=== PATIENT | female | born 1955 ===

== ENCOUNTER 2016-09-03 19:07 | Emergency (ER) | payer SELFPAY ==
[2016-09-03 20:33] VITALS: BP 156/74; PULSE 58; RESP 18; TEMP 97.8; O2SAT 100
[2016-09-03] MEDS ORDERED: Naproxen 500 MG TAB PO STA (21:14)
--- NOTE | 2016-09-03 21:30 | ED PDOC ---
HPI: General Adult Time Seen by Provider: 09/03/16 21:09 Chief Complaint (Nursing): Lower Extremity Problem/Injury Chief Complaint (Provider): Lower Extremity Pain History Per: Patient History/Exam Limitations: no limitations Onset/Duration Of Symptoms: Days (x15 days ago) Have you had recent travel within the past 21 days to any of the following countries: [place], [place], [place] or [place]?: No Current Symptoms Are (Timing): Still Present Severity: Moderate Location: b/l knees Additional Complaint(s): Coral Kent is a 61 year old female,h/o HTN who presents to the emergency department with complaints of knee pain, that the patient has been experiencing for the past x15 days. Patient has a clinical appointment scheduled for 2016; however, her knee pain has worsened, prompting her to visit the ED. Reportedly denies fall or recent trauma. Patient did not take any medication for knee pain. PMD: [facility] Past Medical History Reviewed: Historical Data, Nursing Documentation, Vital Signs Vital Signs: Last Vital Signs Temp 97.8 F 09/03/16 20:29 Pulse 58 L 09/03/16 20:29 Resp 18 09/03/16 20:29 BP 156/74 H 09/03/16 20:29 Pulse Ox 100 09/03/16 21:49 - Medical History PMH: No Chronic Diseases - Surgical History Surgical History: No Surg Hx - Family History Family History: States: Unknown Family Hx - Social History Current smoker - smoking cessation education provided: No Ex-Smoker (has not smoked in the last 12 months): No Alcohol: Occasional Drugs: Denies - Home Medications Home Medications: Ambulatory Orders Medication Instructions Recorded Cyclobenzaprine [Cyclobenzaprine 10 mg PO BID #15 tab 01/12/16 HCl] Ibuprofen 600 mg PO Q6 #30 tab 01/12/16 Naproxen [Naprosyn Tab] 1 tab PO Q8 PRN #21 tab 09/03/16 - Allergies Allergies/Adverse Reactions: Allergies Allergy/AdvReac Type Severity Reaction Status Date / Time No Known Allergies Allergy Verified 01/12/16 19:16 Review of Systems Musculoskeletal: Positive for: Leg Pain (b/l knees) Neurological: Negative for: Weakness, Numbness Physical Exam - Reviewed Nursing Documentation Reviewed: Yes Vital Signs Reviewed: Yes - Physical Exam Appears: Positive for: Non-toxic, No Acute Distress Skin: Positive for: Normal Color, Dry Extremity: Positive for: Normal ROM, Tenderness (b/l knees). Negative for: Other ((-) effusion, (-) erythema) Neurologic/Psych: Positive for: Alert, Oriented - ECG O2 Sat by Pulse Oximetry: 100 (RA) Pulse Ox Interpretation: Normal - Progress ED Course And Treament: Naproxen 500 mg x 1 dose Medical Decision Making Medical Decision Makin:09 Initial Impression: Arthritis Initial Plan: * Naproxen 500mg PO * Reevaluation Scribe Attestation: Documented by Mane Victor, training under Fifi Perera, acting as a scribe for Alesia Soto PA-C. Provider Scribe Attestation: All medical record entries made by the Scribe were at my direction and personally dictated by me. I have reviewed the chart and agree that the record accurately reflects my personal performance of the history, physical exam, medical decision making, and the department course for this patient. I have also personally directed, reviewed, and agree with the discharge instructions and disposition. Disposition - Clinical Impression Clinical Impression: Arthritis - Patient ED Disposition Is Patient to be Admitted: No - Disposition Referrals: [facility] [Outside] Disposition: Routine/Home Disposition Time: 21:46 Condition: GOOD Prescriptions: Naproxen [Naprosyn Tab] 1 tab PO Q8 PRN #21 tab PRN Reason: Pain, Severe (8-10) Instructions: Arthritis (ED) Print Language: K[place]HIL[place]
[2016-09-03] MEDS ORDERED: Naproxen 500 MG TAB PO ONE (21:35)
== END 2016-09-03 22:40 | disposition home or self-care (01) ==
LOC: H.ER 19:07
DX: M19.072 Primary osteoarthritis, left ankle and foot (principal); M19.071 Primary osteoarthritis, right ankle and foot

== ENCOUNTER 2016-09-09 21:49 | Emergency (ER) | payer SELFPAY ==
[2016-09-09 21:59] VITALS: BP 141/67; PULSE 76; RESP 16; TEMP 97.6; O2SAT 97
[2016-09-09] MEDS ORDERED: Sodium Chloride 0.9% 1,000 ML IV STA (23:12)
--- NOTE | 2016-09-09 23:16 | ED PDOC ---
HPI: Back Time Seen by Provider: 09/09/16 22:49 Chief Complaint (Nursing): Female Genitourinary Chief Complaint (Provider): right back pain History Per: Patient History/Exam Limitations: no limitations Onset/Duration Of Symptoms: Days (1 week) Additional History Per: Patient Additional Complaint(s): 61 y/o female presetns with right back pain x 1 week. Pain worse with positional change, improved with Naproxen. Patient notes being seen in ED last week for bilateral knee pain and being diagnosed with arthritis and rx naproxen provided; states she had back pain then, unknown if related. Associated intermittent dysuria. Denies fever, nausea/vomiting, chest pain, shortness of breath, palpitations, changes in bowel movements, hematuria, vaginal bleeding/ discharge. Past Medical History Reviewed: Historical Data, Nursing Documentation, Vital Signs Vital Signs: Last Vital Signs Temp 97.6 F 09/09/16 21:56 Pulse 76 09/09/16 21:56 Resp 16 09/09/16 21:56 BP 141/67 09/09/16 21:56 Pulse Ox 97 09/09/16 21:56 - Medical History PMH: No Chronic Diseases - Surgical History Surgical History: - Family History Family History: States: Unknown Family Hx - Living Arrangements Living Arrangements: With Family - Home Medications Home Medications: Ambulatory Orders Medication Instructions Recorded Cyclobenzaprine [Cyclobenzaprine 10 mg PO BID #15 tab 01/12/16 HCl] Ibuprofen 600 mg PO Q6 #30 tab 01/12/16 Naproxen [Naprosyn Tab] 1 tab PO Q8 PRN #21 tab 09/03/16 - Allergies Allergies/Adverse Reactions: Allergies Allergy/AdvReac Type Severity Reaction Status Date / Time No Known Allergies Allergy Verified 01/12/16 19:16 Review of Systems ROS Statement: Except As Marked, All Systems Reviewed And Found Negative Genitourinary Female: Positive for: Dysuria Musculoskeletal: Positive for: Back Pain Physical Exam - Reviewed Nursing Documentation Reviewed: Yes Vital Signs Reviewed: Yes - Physical Exam Appears: Positive for: Well, Non-toxic, No Acute Distress Head Exam: Positive for: ATRAUMATIC, NORMAL INSPECTION, NORMOCEPHALIC Skin: Positive for: Normal Color Eye Exam: Positive for: Normal appearance ENT: Positive for: Normal ENT Inspection Cardiovascular/Chest: Positive for: Regular Rate, Rhythm Respiratory: Positive for: Normal Breath Sounds Gastrointestinal/Abdominal: Positive for: Bowel Sounds, Soft, Tenderness (right flank) Back: Positive for: Normal Inspection, Muscle Spasm (right lspine paraspinals). Negative for: L CVA Tenderness, R CVA Tenderness, Vertebral Tenderness, Decreased ROM Extremity: Positive for: Normal ROM Neurologic/Psych: Positive for: Alert, Oriented - Laboratory Results Result Diagrams: 09/09/16 23:33 09/09/16 23:33 - ECG O2 Sat by Pulse Oximetry: 97 - Progress ED Course And Treament: labs, urine, IV toradol On re-eval, patient states pain improved. Patient educated on findings, offered antibiotics but wishes to wait culture results as she has follow up appt at [facility] this week. Advised to continue Naproxen previously prescribed. Return to ED for worsening/concerning symptoms Disposition - Clinical Impression Clinical Impression: Back pain - Patient ED Disposition Is Patient to be Admitted: No Counseled Patient/Family Regarding: Studies Performed, Diagnosis, Need For Followup - Disposition Disposition: Routine/Home Disposition Time: 02:28 Condition: IMPROVED Instructions: Acute Low Back Pain (ED) Print Language: CROATIAN
[2016-09-09 23:43] LABS: BASO % 0.5 % (0.0-2.0); EOS # 0.1 K/uL (0.0-0.7); EOS % 1.5 % (0.0-4.0); HEMATOCRIT 40.9 % (34.0-47.0); LYMPH % 25.9 % (20.0-40.0); MEAN CELL VOLUME 91.5 fl (81.0-99.0); MEAN CORPUSCULAR HGB CONC 33.8 g/dL (33.0-37.0); MEAN PLATELET VOLUME 8.6 fl (7.2-11.7); MONO # 0.7 K/uL (0.0-0.8); MONO % 9.2 % (0.0-10.0); NEUT # 4.8 K/uL (1.8-7.0); NEUT % 62.9 % (50.0-75.0); RED CELL DISTRIBUTION WIDTH 13.3 % (11.5-14.5); WHITE BLOOD COUNT 7.6 K/uL (4.8-10.8)
[2016-09-09 23:51] LABS: ALB/GLOB RATIO 1.2 (1.0-2.1); ALKALINE PHOSPHATASE 126 U/L (38-126); ALT/SGPT 34 U/L (9-52); AST/SGOT 43 U/L (14-36); BILIRUBIN,TOTAL 0.5 mg/dl (0.2-1.3); BLOOD UREA NITROGEN 11 mg/dl (7-17); CALCIUM 9.7 mg/dL (8.4-10.2); CARBON DIOXIDE 29 mmol/L (22-30); CHLORIDE 104 mmol/L (98-107); GFR AFRICAN-AMERICAN > 60; GLUCOSE,RANDOM 116 mg/dL (65-105); POTASSIUM 3.8 MMOL/L (3.6-5.0); SODIUM 147 mmol/l (132-148)
[2016-09-09 23:54] LABS: RBC URINE 1 /hpf (0-3); URINE BILIRUBIN NEGATIVE (NEGATIVE); URINE BLOOD NEGATIVE (NEGATIVE); URINE COLOR STRAW (YELLOW); URINE GLUCOSE (UA) NEG (Normal); URINE KETONE NEGATIVE (NEGATIVE); URINE LEUKOCYTE ESTERASE TRACE Leu/uL (Negative); URINE PROTEIN NEGATIVE (NEGATIVE); URINE UROBILINOGEN 0.2-1.0 mg/dL (0.2-1.0); WBC URINE 3 /hpf (0-5)
== END 2016-09-10 02:39 | disposition home or self-care (01) ==
LOC: H.ER 21:49
DX: M54.5 Low back pain (principal)

== ENCOUNTER 2016-09-12 18:32 | Observation (INO) | payer SELFPAY ==
[2016-09-12 18:47] VITALS: BP 147/83; PULSE 64; RESP 18; O2SAT 99
[2016-09-12] MEDS ORDERED: Iohexol 240 (50 ml) PO ONE (19:17)
[2016-09-12 19:59] LABS: BASO % 0.5 % (0.0-2.0); EOS # 0.1 K/uL (0.0-0.7); EOS % 0.7 % (0.0-4.0); HEMATOCRIT 42.6 % (34.0-47.0); LYMPH # 1.6 K/uL (1.0-4.3); LYMPH % 19.2 % (20.0-40.0); MEAN CORPUSCULAR HEMOGLOBIN 30.7 pg (27.0-31.0); MEAN CORPUSCULAR HGB CONC 33.8 g/dL (33.0-37.0); MEAN PLATELET VOLUME 8.3 fl (7.2-11.7); MONO # 0.6 K/uL (0.0-0.8); MONO % 7.1 % (0.0-10.0); NEUT # 6.1 K/uL (1.8-7.0); NEUT % 72.5 % (50.0-75.0); NRBC % 0.1 % (0.0-0.0); WHITE BLOOD COUNT 8.4 K/uL (4.8-10.8)
[2016-09-12 20:08] LABS: ALB/GLOB RATIO 1.1 (1.0-2.1); ALKALINE PHOSPHATASE 98 U/L (38-126); ALT/SGPT 41 U/L (9-52); AST/SGOT 32 U/L (14-36); BILIRUBIN,TOTAL 0.7 mg/dl (0.2-1.3); BLOOD UREA NITROGEN 8 mg/dl (7-17); CALCIUM 9.7 mg/dL (8.4-10.2); CARBON DIOXIDE 28 mmol/L (22-30); CHLORIDE 102 mmol/L (98-107); GFR AFRICAN-AMERICAN > 60; GLUCOSE,RANDOM 102 mg/dL (65-105); POTASSIUM 3.9 MMOL/L (3.6-5.0); SODIUM 144 mmol/l (132-148); TOTAL PROTEIN 8.5 G/DL (6.3-8.2)
--- NOTE | 2016-09-12 20:25 | ED PDOC ---
HPI: Abdomen Time Seen by Provider: 09/12/16 18:55 Chief Complaint (Nursing): Abdominal Pain Chief Complaint (Provider): Abdominal Pain History Per: Patient History/Exam Limitations: no limitations Onset/Duration Of Symptoms: Days Current Symptoms Are (Timing): Still Present Severity: Mild Location Of Pain/Discomfort: RLQ Quality Of Discomfort: "Pain" Associated Symptoms: denies: Nausea, Vomiting, Diarrhea, Urinary Symptoms Exacerbating Factors: None Alleviating Factors: None Additional Complaint(s): Patient is a 61 year old female who presents to ED for evaluation of RLQ pain with no associated symptoms for 2 days. Patient denies nausea, vomiting, diarrhea, fever or urinary changes. Past Medical History Reviewed: Historical Data, Nursing Documentation, Vital Signs Vital Signs: Last Vital Signs Temp Pulse 64 09/12/16 18:44 Resp 18 09/12/16 18:44 BP 147/83 09/12/16 18:44 Pulse Ox 99 09/12/16 23:56 - Medical History PMH: Anemia, Hyperlipidemia - Surgical History Surgical History: (x4) - Family History Family History: States: Unknown Family Hx - Living Arrangements Living Arrangements: With Family - Social History Current smoker - smoking cessation education provided: No Alcohol: None Drugs: Denies - Home Medications Home Medications: Ambulatory Orders Medication Instructions Recorded Cyclobenzaprine [Cyclobenzaprine 10 mg PO BID #15 tab 01/12/16 HCl] Ibuprofen 600 mg PO Q6 #30 tab 01/12/16 Naproxen [Naprosyn Tab] 1 tab PO Q8 PRN #21 tab 09/03/16 - Allergies Allergies/Adverse Reactions: Allergies Allergy/AdvReac Type Severity Reaction Status Date / Time No Known Allergies Allergy Verified 01/12/16 19:16 Review of Systems ROS Statement: Except As Marked, All Systems Reviewed And Found Negative Constitutional: Negative for: Fever, Chills Respiratory: Negative for: Shortness of Breath Gastrointestinal: Positive for: Abdominal Pain. Negative for: Nausea, Vomiting , Diarrhea Genitourinary Female: Negative for: Dysuria, Hematuria Musculoskeletal: Negative for: Back Pain Physical Exam - Reviewed Nursing Documentation Reviewed: Yes Vital Signs Reviewed: Yes - Physical Exam Appears: Positive for: Non-toxic, No Acute Distress Skin: Positive for: Normal Color, Warm Eye Exam: Positive for: Normal appearance Neck: Positive for: Normal, Painless ROM Cardiovascular/Chest: Positive for: Regular Rate, Rhythm. Negative for: Murmur Respiratory: Positive for: Normal Breath Sounds. Negative for: Respiratory Distress Gastrointestinal/Abdominal: Positive for: Soft, Tenderness (mild RLQ). Negative for: Distended, Guarding, Rebound Back: Positive for: Normal Inspection. Negative for: L CVA Tenderness, R CVA Tenderness Extremity: Positive for: Normal ROM. Negative for: Pedal Edema Neurologic/Psych: Positive for: Alert, Oriented - Laboratory Results Result Diagrams: 09/12/16 19:54 09/12/16 19:54 - ECG O2 Sat by Pulse Oximetry: 99 (RA) Pulse Ox Interpretation: Normal Medical Decision Making Medical Decision Making: Time: 1909 Initial impression: Abdominal pain r/o appendicitis Initial plan: -- CT-abdomen -- CMP -- CBC -- Urine culture -- ED obs -- U/A -- ED OBS All further documentation will take place in the ED OBS note. Scribe Attestation: Documented by Lee Ann Brady acting as a scribe for Liana Glaser MD MD Scribe Attestation: All medical record entries made by the Scribe were at my direction and personally dictated by me. I have reviewed the chart and agree that the record accurately reflects my personal performance of the history, physical exam, medical decision making, and the department course for this patient. I have also personally directed, reviewed, and agree with the discharge instructions and disposition. ED OBSERVATION Discharge: Yes Date of observation admission: 09/12/16 Time of observation admission: 19:21 - Progress Note Progress Note: Time: 2149 Labs reviewed all WNL 2241 CT FINDINGS LOWER THORAX: No infiltrate seen in the lung bases. ABDOMEN: LIVER: Scattered small low density liver lesions, most likely representing cysts. The largest lesion measures 1.1 cm. GALLBLADDER AND BILE DUCTS: Suspect small, radiolucent stones in the gallbladder neck. The gallbladder is mildly dilated. No evidence of pericholecystic fluid. No evidence of significant pericholecystic inflammatory changes. PANCREAS: No CT evidence of acute pancreatitis. SPLEEN: No acute abnormality of the spleen identified. ADRENALS: No acute abnormality of the adrenal glands identified. KIDNEYS AND URETERS: No acute abnormality of the kidneys identified. No evidence of significant hydrouereteronephrosis. STOMACH AND BOWEL: Colonic diverticulosis, with no evidence of acute diverticulitis. No acute abnormality of the stomach or duodenum identified. No evidence of small bowel obstruction. APPENDIX: Appendix is seen, and is within normal limits in appearance. PELVIS: BLADDER: No acute abnormality of the bladder identified. REPRODUCTIVE: 4.3 cm right ovarian/adnexal cystic lesion. This has a benign appearance by CT. It appears slightly enlarged compared to the prior CT. Recommend followup ultrasound to further evaluate this cyst, not necessarily on an emergent basis. No acute abnormality of the uterus identified. ABDOMEN and PELVIS: INTRAPERITONEAL SPACE: No evidence of free intraperitoneal air or fluid. BONES/JOINTS: Chronic-appearing deformity of the right acetabulum and iliac bone , most likely related to remote fractures. No acute fractures or other acute bony abnormality visualized. SOFT TISSUES: No acute abnormality of the visualized soft tissues is seen. VASCULATURE: No evidence of abdominal aortic aneurysm. No evidence of periaortic hemorrhage. LYMPH NODES: No evidence of diffuse lymphadenopathy. IMPRESSION - No evidence of significant acute process. Appendix is normal. - Mild gallbladder dilatation, with suspected small stones in the gallbladder neck. No CT evidence of acute cholecystitis. Recommend clinical correlation, and followup right upper quadrant ultrasound as indicated. - 4.3 cm right ovarian cystic lesion. See recommendations above. - See above for remaining findings. 2345 Incidental findings discussed with patient. Patient is stable for discharge. pt tolerated po and given copy of CT report for outpt surgery and gynecology follow up 09/12/16 23:55 Disposition - Clinical Impression Clinical Impression: Abdominal pain, Biliary colic - Patient ED Disposition Is Patient to be Admitted: No Counseled Patient/Family Regarding: Studies Performed - Disposition Disposition: Routine/Home Disposition Time: 23:45 Condition: IMPROVED - POA Present On Arrival: None
[2016-09-12 20:44] LABS: RBC URINE < 1 /hpf (0-3); URINE BACTERIA RARE (<OCC); URINE BILIRUBIN NEGATIVE (NEGATIVE); URINE BLOOD NEGATIVE (NEGATIVE); URINE COLOR COLORLESS (YELLOW); URINE GLUCOSE (UA) NEG (Normal); URINE KETONE NEGATIVE (NEGATIVE); URINE LEUKOCYTE ESTERASE TRACE Leu/uL (Negative); URINE PROTEIN NEGATIVE (NEGATIVE); URINE UROBILINOGEN 0.2-1.0 mg/dL (0.2-1.0); WBC URINE 1 /hpf (0-5)
[2016-09-12] MEDS ORDERED: Iohexol 300 100 ML IJ ONE (21:23)
[2016-09-12] MEDS ORDERED: Sodium Chloride 0.9% 50 ML IV ONE (21:23)
--- NOTE | 2016-09-12 22:41 | CT ---
EXAM: CT Abdomen and Pelvis With Intravenous Contrast CLINICAL HISTORY: 61 years old, female; Pain; Abdominal pain; Localized; Right lower quadrant (rlq); Prior surgery; Surgery date: 6+ months; Surgery type: 4 c-sections; Additional info: Abdominal pain rule out appendicitis. Sent antonio Hairston. Doc. With request TECHNIQUE: Axial computed tomography images of the abdomen and pelvis with intravenous contrast. This CT exam was performed using one or more of the following dose reduction techniques: automated exposure control, adjustment of the mA and/or kV according to patient size, and/or use of iterative reconstruction technique. Coronal and sagittal reformatted images were created and reviewed. CONTRAST: 90 mL of [id number] administered intravenously. EXAM DATE/TIME: 09/12/2016 7:17 PM COMPARISON: Prior CT abdomen and pelvis of 01/12/2016 8:01:04 PM FINDINGS: LOWER THORAX: No infiltrate seen in the lung bases. ABDOMEN: LIVER: Scattered small low density liver lesions, most likely representing cysts. The largest lesion measures 1.1 cm. GALLBLADDER AND BILE DUCTS: Suspect small, radiolucent stones in the gallbladder neck. The gallbladder is mildly dilated. No evidence of pericholecystic fluid. No evidence of significant pericholecystic inflammatory changes. PANCREAS: No CT evidence of acute pancreatitis. SPLEEN: No acute abnormality of the spleen identified. ADRENALS: No acute abnormality of the adrenal glands identified. KIDNEYS AND URETERS: No acute abnormality of the kidneys identified. No evidence of significant hydrouereteronephrosis. STOMACH AND BOWEL: Colonic diverticulosis, with no evidence of acute diverticulitis. No acute abnormality of the stomach or duodenum identified. No evidence of small bowel obstruction. APPENDIX: Appendix is seen, and is within normal limits in appearance. PELVIS: BLADDER: No acute abnormality of the bladder identified. REPRODUCTIVE: 4.3 cm right ovarian/adnexal cystic lesion. This has a benign appearance by CT. It appears slightly enlarged compared to the prior CT. Recommend followup ultrasound to further evaluate this cyst, not necessarily on an emergent basis. No acute abnormality of the uterus identified. ABDOMEN and PELVIS: INTRAPERITONEAL SPACE: No evidence of free intraperitoneal air or fluid. BONES/JOINTS: Chronic-appearing deformity of the right acetabulum and iliac bone, most likely related to remote fractures. No acute fractures or other acute bony abnormality visualized. SOFT TISSUES: No acute abnormality of the visualized soft tissues is seen. VASCULATURE: No evidence of abdominal aortic aneurysm. No evidence of periaortic hemorrhage. LYMPH NODES: No evidence of diffuse lymphadenopathy. IMPRESSION: - No evidence of significant acute process. Appendix is normal. - Mild gallbladder dilatation, with suspected small stones in the gallbladder neck. No CT evidence of acute cholecystitis. Recommend clinical correlation, and followup right upper quadrant ultrasound as indicated. - 4.3 cm right ovarian cystic lesion. See recommendations above. - See above for remaining findings.
== END 2016-09-12 23:56 | disposition home or self-care (01) ==
LOC: H.ER 18:32 → H.EROBSV 19:21
PROVIDERS: ADMIT Emergency Medicine; ATTEND Emergency Medicine
DX: K80.50 Calculus of bile duct without cholangitis or cholecystitis without obstruction (principal); E78.5 Hyperlipidemia, unspecified

== ENCOUNTER 2016-09-19 18:42 | Emergency (ER) | payer SELFPAY ==
[2016-09-19 19:19] VITALS: BP 131/77; PULSE 65; RESP 16; TEMP 98; O2SAT 100
--- NOTE | 2016-09-19 20:35 | ED PDOC ---
HPI: Abdomen Time Seen by Provider: 09/19/16 19:38 Chief Complaint (Nursing): Abdominal Pain Chief Complaint (Provider): Abdominal Pain History Per: Patient History/Exam Limitations: no limitations Onset/Duration Of Symptoms: Hrs (x4 hours) Current Symptoms Are (Timing): Still Present Additional Complaint(s): 61 y/o female who presents to the emergency department with a complaint of abdominal pain after taking medications that were suppose to treat abdominal pain around 4pm today. Describes pain as sharp that radiates to the back; pain resolved after 45 minutes and is currently asymptomatic. States appetite is good because she tried changing her diet although pain has been intermittent since. Denies nausea, vomiting, diarrhea, fever, chills, or urinary discomfort. Of note, patient was seen in the ER on 09/26/2016 for similar symptoms, underwent a CT scan and was diagnosed with gallstones. Was told to follow up with social services counselor but could not because she currently has no insurance. PMD : Clinic Past Medical History Reviewed: Historical Data, Nursing Documentation, Vital Signs Vital Signs: Last Vital Signs Temp 98.0 F 09/19/16 19:15 Pulse 65 09/19/16 19:15 Resp 16 09/19/16 19:15 BP 131/77 09/19/16 19:15 Pulse Ox 100 09/19/16 21:55 - Medical History PMH: Anemia, Hyperlipidemia - Surgical History Surgical History: (x4) - Family History Family History: States: Hypertension - Social History Current smoker - smoking cessation education provided: No Alcohol: None Drugs: Denies - Home Medications Home Medications: Ambulatory Orders Medication Instructions Recorded Cyclobenzaprine [Cyclobenzaprine 10 mg PO BID #15 tab 01/12/16 HCl] Ibuprofen 600 mg PO Q6 #30 tab 01/12/16 Naproxen [Naprosyn Tab] 1 tab PO Q8 PRN #21 tab 09/03/16 - Allergies Allergies/Adverse Reactions: Allergies Allergy/AdvReac Type Severity Reaction Status Date / Time No Known Allergies Allergy Verified 09/19/16 19:15 Review of Systems ROS Statement: Except As Marked, All Systems Reviewed And Found Negative Constitutional: Negative for: Fever, Chills Gastrointestinal: Positive for: Abdominal Pain. Negative for: Nausea, Vomiting , Diarrhea Genitourinary Female: Negative for: Dysuria, Frequency, Incontinence, Hematuria Musculoskeletal: Positive for: Back Pain Physical Exam - Reviewed Nursing Documentation Reviewed: Yes Vital Signs Reviewed: Yes - Physical Exam Appears: Positive for: Well, Non-toxic, No Acute Distress Head Exam: Positive for: ATRAUMATIC, NORMOCEPHALIC Skin: Positive for: Normal Color, Warm, Dry Eye Exam: Positive for: Normal appearance. Negative for: Conjunctival injection Cardiovascular/Chest: Positive for: Regular Rate, Rhythm. Negative for: Murmur Respiratory: Positive for: Normal Breath Sounds. Negative for: Accessory Muscle Use, Respiratory Distress Gastrointestinal/Abdominal: Positive for: Soft, Tenderness (Tenderness to deep palpations of the RUQ). Negative for: Mass, Distended, Guarding, Rebound Back: Positive for: Normal Inspection. Negative for: Decreased ROM Extremity: Positive for: Normal ROM. Negative for: Pedal Edema Lymphatic: Negative for: Adenopathy Neurologic/Psych: Positive for: Alert. Negative for: Motor/Sensory Deficits - ECG O2 Sat by Pulse Oximetry: 100 (RA) Pulse Ox Interpretation: Normal Medical Decision Making Medical Decision Making: Time: 19:38 Initial impression: Cholecystitis Initial plan: --Abdomen Complete US --Revaluation EXAM: US Abdomen Complete CLINICAL HISTORY: 61 years old, female; Pain; Abdominal pain; Epigastric; Additional info: Ruq pain TECHNIQUE: Real-time ultrasound of the abdomen (complete) with image documentation. COMPARISON: CT - ABD PELVIS PO IV CONTRAST 09/12/2016 9:45:41 PM FINDINGS: Liver: Measured at 12.5 cm. Slightly increased echogenicity. 1.1 cm and 0.9 cm cystic appearing lesions noted. Gallbladder: Cholelithiasis. No gallbladder wall thickening. Reported negative sonographic Mccoy's sign. Common bile duct: No dilation, measured at 3.6 mm. Pancreas: Limited evaluation due to bowel gas. Kidneys: Right kidney measured 9.1 cm, left kidney measured 10.3 cm. No hydronephrosis. Spleen: No splenomegaly. Aorta/IVC: Unremarkable as visualized. Limited evaluation. IMPRESSION: Liver demonstrates slightly increased echogenicity and small cystic lesions as above. Findings better appreciated on recently performed CT. Cholelithiasis without sonographic evidence of acute cholecystitis. Additional findings and limitations as above. Correlate clinically. Followup as warranted. Thank you for allowing us to participate in the care of your patient. Dictated and Authenticated by: Sue Luis MD 09/19/2016 9:32 PM Eastern Time ([place] & [place]) On reeval pt continues to be asymptomatic. Pt has appointments setup for surgery , GI and clinic for follow up. Advised to keep these appointments for further management. Scribe Attestation: Documented by Vicki Persaud, acting as a scribe for Jessie Katz MD. Provider Scribe Attestation: All medical record entries made by the Scribe were at my direction and personally dictated by me. I have reviewed the chart and agree that the record accurately reflects my personal performance of the history, physical exam, medical decision making, and the department course for this patient. I have also personally directed, reviewed, Disposition - Clinical Impression Clinical Impression: Cholelithiasis - Disposition Referrals: [facility] [Outside] - 09/20/16 Disposition: Routine/Home Disposition Time: 21:00 Condition: STABLE Instructions: Gallstones (ED) Print Language: SINGAPORE[place]
--- NOTE | 2016-09-19 21:32 | US ---
EXAM: US Abdomen Complete CLINICAL HISTORY: 61 years old, female; Pain; Abdominal pain; Epigastric; Additional info: Ruq pain TECHNIQUE: Real-time ultrasound of the abdomen (complete) with image documentation. COMPARISON: CT - ABD PELVIS PO IV CONTRAST 09/12/2016 9:45:41 PM FINDINGS: Liver: Measured at 12.5 cm. Slightly increased echogenicity. 1.1 cm and 0.9 cm cystic appearing lesions noted. Gallbladder: Cholelithiasis. No gallbladder wall thickening. Reported negative sonographic Mccoy's sign. Common bile duct: No dilation, measured at 3.6 mm. Pancreas: Limited evaluation due to bowel gas. Kidneys: Right kidney measured 9.1 cm, left kidney measured 10.3 cm. No hydronephrosis. Spleen: No splenomegaly. Aorta/IVC: Unremarkable as visualized. Limited evaluation. IMPRESSION: Liver demonstrates slightly increased echogenicity and small cystic lesions as above. Findings better appreciated on recently performed CT. Cholelithiasis without sonographic evidence of acute cholecystitis. Additional findings and limitations as above. Correlate clinically. Followup as warranted.
== END 2016-09-19 21:58 | disposition home or self-care (01) ==
LOC: H.ER 18:42
DX: K80.20 Calculus of gallbladder without cholecystitis without obstruction (principal); E78.5 Hyperlipidemia, unspecified; R10.11 Right upper quadrant pain

== ENCOUNTER 2017-01-20 14:10 | Emergency (ER) | payer MEDICAID ==
[2017-01-20 14:17] VITALS: RESP 18; TEMP 98
--- NOTE | 2017-01-20 14:32 | ED PDOC ---
HPI: Abdomen Time Seen by Provider: 01/20/17 14:18 Chief Complaint (Nursing): Abdominal Pain Chief Complaint (Provider): Lower abdomen pain History Per: Patient History/Exam Limitations: no limitations Onset/Duration Of Symptoms: Days (4) Current Symptoms Are (Timing): Still Present Location Of Pain/Discomfort: RLQ, LLQ Quality Of Discomfort: "Pain" Additional Complaint(s): The patient is a 61yo female, presents to the ED for evaluation of lower abdominal discomfort after urinating for the past 4 days. Patient reports she took Motrin for her pain without relief. She denies any associated vaginal discharge, itching, rash. She does report having a history of ovarian cysts which are currently being monitored. She offers no additional medical complaints. Abnormal Vaginal Bleeding: No Past Medical History Reviewed: Historical Data, Nursing Documentation, Vital Signs Vital Signs: Last Vital Signs Temp 98.0 F 01/20/17 14:14 Pulse 59 L 01/20/17 18:25 Resp 18 01/20/17 18:25 BP 128/56 L 01/20/17 18:25 Pulse Ox 96 01/20/17 18:50 - Medical History PMH: Anemia, Hyperlipidemia - Surgical History Surgical History: (x4) - Family History Family History: States: Unknown Family Hx, Hypertension - Home Medications Home Medications: Ambulatory Orders Medication Instructions Recorded Cyclobenzaprine [Cyclobenzaprine 10 mg PO BID #15 tab 01/12/16 HCl] Ibuprofen 600 mg PO Q6 #30 tab 01/12/16 Naproxen [Naprosyn Tab] 1 tab PO Q8 PRN #21 tab 09/03/16 Naproxen [Naprosyn Tab] 375 mg PO Q8 PRN #15 tab 01/20/17 Nitrofurantoin Macrocrystals 100 mg PO BID #14 cap 01/20/17 [Macrobid] - Allergies Allergies/Adverse Reactions: Allergies Allergy/AdvReac Type Severity Reaction Status Date / Time No Known Allergies Allergy Verified 09/19/16 19:15 Review of Systems ROS Statement: Except As Marked, All Systems Reviewed And Found Negative Gastrointestinal: Positive for: Abdominal Pain (lower abdominal pain ) Genitourinary Female: Positive for: Dysuria (urinary discomfort). Negative for : Vaginal Discharge, Vaginal Bleeding Physical Exam - Reviewed Nursing Documentation Reviewed: Yes Vital Signs Reviewed: Yes - Physical Exam Appears: Positive for: Well, Non-toxic, No Acute Distress Head Exam: Positive for: ATRAUMATIC, NORMAL INSPECTION, NORMOCEPHALIC Skin: Positive for: Normal Color Eye Exam: Positive for: Normal appearance Neck: Positive for: Normal, Supple Cardiovascular/Chest: Positive for: Regular Rate, Rhythm Respiratory: Positive for: Normal Breath Sounds. Negative for: Respiratory Distress Gastrointestinal/Abdominal: Positive for: Normal Exam, Soft. Negative for: Tenderness Back: Positive for: Normal Inspection. Negative for: L CVA Tenderness, R CVA Tenderness Extremity: Positive for: Normal ROM. Negative for: Deformity, Swelling Neurologic/Psych: Positive for: Alert, Oriented - Laboratory Results Result Diagrams: 01/20/17 15:42 01/20/17 15:42 - ECG O2 Sat by Pulse Oximetry: 96 Medical Decision Making Medical Decision Making: Time: 1425 Impression: Rule out UTI Plan: -- Urine culture -- Urinalysis Reassess Time: 1533 CT AP w/ contrast ordered Time: 1718 CT AP IMPRESSION: 1. No CT evidence to suggest appendicitis at this time. 2. 3.9 cm simple right adnexal cyst identified stable in size versus recurrent. Further clinical correlation advised. Follow-up Pelvic ultrasonography is available if clinically warranted. 3. Multiple stable appearing hepatic lucencies are seen in both lobes, more so on the right than left. Several are too small to characterize once again. 4. Stable limited sigmoid diverticulosis without diverticulitis. 5. A stable, tiny right lower lobe nodule is appreciated for which follow-up chest CT is advised in 1 year to demonstrate stability depending on the patient' s risk factor for developing lung cancer. Scribe Attestation: Documented by Sienna Salas acting as a scribe for ANGEL Del Real. Provider Attestation: All medical record entries made by the Scribe were at my direction and personally dictated by me. I have reviewed the chart and agree that the record accurately reflects my personal performance of the history, physical exam, medical decision making, and the department course for this patient. I have also personally directed, reviewed, and agree with the discharge instructions and disposition. Disposition - Clinical Impression Clinical Impression: Abdominal pain in female, Ovarian cyst, Dysuria - Patient ED Disposition Is Patient to be Admitted: No - Disposition [facility] Disposition: Routine/Home Disposition Time: 18:49 Condition: FAIR Prescriptions: Naproxen [Naprosyn Tab] 375 mg PO Q8 PRN #15 tab PRN Reason: Pain, Moderate (4-7) Nitrofurantoin Macrocrystals [Macrobid] 100 mg PO BID #14 cap Instructions: Ovarian Cyst (ED), Dysuria (ED) Forms: [facility] (Japanese) Print Language: HUNGARIAN
[2017-01-20 15:08] LABS: RBC URINE 1 /hpf (0-3); URINE BILIRUBIN NEGATIVE (NEGATIVE); URINE BLOOD SMALL (NEGATIVE); URINE COLOR YELLOW (YELLOW); URINE GLUCOSE (UA) NEG (Normal); URINE KETONE NEGATIVE (NEGATIVE); URINE LEUKOCYTE ESTERASE NEG Leu/uL (Negative); URINE PROTEIN NEGATIVE (NEGATIVE); URINE UROBILINOGEN 0.2-1.0 mg/dL (0.2-1.0); WBC URINE 2 /hpf (0-5)
[2017-01-20] MEDS ORDERED: Sodium Chloride 0.9% 1,000 ML IV STA (15:34)
[2017-01-20 15:52] LABS: BASO # 0.1 K/uL (0.0-0.2); EOS % 0.8 % (0.0-4.0); HEMATOCRIT 39.8 % (34.0-47.0); LYMPH # 1.7 K/uL (1.0-4.3); LYMPH % 27.4 % (20.0-40.0); MEAN CELL VOLUME 89.8 fl (81.0-99.0); MEAN CORPUSCULAR HEMOGLOBIN 31.2 pg (27.0-31.0); MEAN CORPUSCULAR HGB CONC 34.8 g/dL (33.0-37.0); MEAN PLATELET VOLUME 8.5 fl (7.2-11.7); MONO # 0.4 K/uL (0.0-0.8); MONO % 7.1 % (0.0-10.0); NEUT % 63.7 % (50.0-75.0); NRBC % 0.2 % (0.0-0.0); RED CELL DISTRIBUTION WIDTH 12.6 % (11.5-14.5); WHITE BLOOD COUNT 6.3 K/uL (4.8-10.8)
[2017-01-20 16:04] LABS: ALB/GLOB RATIO 1.4 (1.0-2.1); ALKALINE PHOSPHATASE 88 U/L (38-126); ALT/SGPT 38 U/L (9-52); AST/SGOT 26 U/L (14-36); BILIRUBIN,TOTAL 0.8 mg/dl (0.2-1.3); BLOOD UREA NITROGEN 8 mg/dl (7-17); CALCIUM 9.1 mg/dL (8.4-10.2); CARBON DIOXIDE 26 mmol/L (22-30); CHLORIDE 104 mmol/L (98-107); GFR AFRICAN-AMERICAN > 60; GLUCOSE,RANDOM 91 mg/dL (65-105); LIPASE 106 U/L (23-300); POTASSIUM 3.6 MMOL/L (3.6-5.0); SODIUM 141 mmol/l (132-148); TOTAL PROTEIN 7.5 G/DL (6.3-8.2)
[2017-01-20] MEDS ORDERED: Sodium Chloride 0.9% 50 ML IV ONE (16:27)
[2017-01-20] MEDS ORDERED: Iohexol 300 100 ML IJ ONE (16:27)
--- NOTE | 2017-01-20 17:19 | CT ---
PROCEDURE: CT Abdomen and Pelvis with contrast HISTORY: right lower quadrant pain COMPARISON: Abdomen and pelvis CT with contrast 09/12/2016 TECHNIQUE: Contrast dose: Omnipaque 300, 95 cc Radiation dose: Total exam DLP = 774 mGy-cm. This CT exam was performed using one or more of the following dose reduction techniques: Automated exposure control, adjustment of the mA and/or kV according to patient size, and/or use of iterative reconstruction technique. FINDINGS: LOWER THORAX: A tiny stable 2 mm nodule seen the right lower lobe unchanged compared 01/12/2016 CT (series 3, image 17). Trace fibrosis is again noted in the right lower lobe posterior laterally. LIVER: There a few scattered lucencies which results too small to characterize at the left and right lobes of the liver numbering 1 on the left and 3 at the right with a small stable cyst at the right lobe inferiorly, measuring 1.1 cm once again. GALLBLADDER AND BILE DUCTS: Gallbladder is again seen distended with of likely loosing calculus at the neck. No acute findings related grossly. PANCREAS: Unremarkable. No gross lesion or ductal dilatation. SPLEEN: Unremarkable. ADRENALS: Unremarkable. No mass. KIDNEYS AND URETERS: Unremarkable. No hydronephrosis. No solid mass. VASCULATURE: Unremarkable. No aortic aneurysm. BOWEL: Unremarkable. No obstruction. No gross mural thickening. Stable limited sigmoid diverticular changes are appreciated without diverticulitis. The stomach is collapsed. Lack of oral contrast limits evaluation of the bowel and stomach. APPENDIX: Normal appendix. PERITONEUM: Unremarkable. No free fluid. No free air. LYMPH NODES: Unremarkable. No enlarged lymph nodes. BLADDER: Unremarkable. REPRODUCTIVE: A a stable or recurrent simple appearing right adnexal cyst is identified measuring 3.9 x 3.0 cm with a left adnexal compartment unremarkable appearing as well as the uterus. BONES: No acute fracture. OTHER FINDINGS: None. IMPRESSION: 1. No CT evidence to suggest appendicitis at this time. 2. 3.9 cm simple right adnexal cyst identified stable in size versus recurrent. Further clinical correlation advised. Follow-up Pelvic ultrasonography is available if clinically warranted. 3. Multiple stable appearing hepatic lucencies are seen in both lobes, more so on the right than left. Several are too small to characterize once again. 4. Stable limited sigmoid diverticulosis without diverticulitis. 5. A stable, tiny right lower lobe nodule is appreciated for which follow-up chest CT is advised in 1 year to demonstrate stability depending on the patient's risk factor for developing lung cancer.
[2017-01-20 18:38] VITALS: BP 128/56; PULSE 59
[2017-01-20 18:48] VITALS: O2SAT 96
== END 2017-01-20 19:12 | disposition home or self-care (01) ==
LOC: H.ER 14:10
DX: N83.201 Unspecified ovarian cyst, right side (principal); K57.30 Diverticulosis of large intestine without perforation or abscess without bleeding; E78.5 Hyperlipidemia, unspecified
CPT/HCPCS: 74177; 80053; 81003; 83690; 85025; 87086; 87491; 87591; 99282; J7040; Q9967

== ENCOUNTER 2017-01-28 08:30 | Day surgery (SDC) | payer MEDICAID, SELFPAY ==
[2017-01-28] MEDS ORDERED: Lactated Ringer's 500 ML IV ONE (08:47)
[2017-01-28] MEDS ORDERED: Propofol 10 mg/ml Inj (20 ML) ONE (09:53)
[2017-01-28 10:14] VITALS: TEMP 97.5
[2017-01-28 10:37] VITALS: BP 112/68; PULSE 70; RESP 12; O2SAT 98
== END 2017-01-28 10:42 | disposition home or self-care (01) ==
LOC: H.ENDO 08:30
PROVIDERS: ATTEND Internal Medicine Gastroenterology
DX: Z12.11 Encounter for screening for malignant neoplasm of colon (principal); K64.0 First degree hemorrhoids
CPT/HCPCS: 45378; J2001; J2704; J7120